=== PATIENT | female | born 1960 | race Hispanic/Latino ===

== ENCOUNTER 2021-04-12 10:15 | Outpatient (CLI) | payer OTHER ==
[2021-04-12 20:45] LABS: SARS-CoV-2 PCR by NAA Not Detected (NotDetected)
== END 2021-04-12 10:16 | disposition home or self-care (01) ==
LOC: CSHLAB 10:15
PROVIDERS: ATTEND Emergency Medicine
DX: Z20.822 Contact with and (suspected) exposure to COVID-19 (principal)
CPT/HCPCS: U0003; U0005

== ENCOUNTER 2021-04-17 13:49 | Outpatient (CLI) | payer OTHER | END 2021-04-17 13:50 | disposition home or self-care (01) | LOC: CSHCP 13:49 | PROVIDERS: ATTEND Emergency Medicine | DX: Z87.09 Personal history of other diseases of the respiratory system (principal) ==

== ENCOUNTER 2023-03-12 07:20 | Day surgery (SDC) | payer OTHER ==
[2023-03-11 10:13] VITALS: BMI 36.1
[2023-03-12] MEDS ORDERED: PROPOFOL 40 ML ONE (09:53)
== END 2023-03-12 11:19 | disposition home or self-care (01) ==
LOC: CSHSDC 07:20
PROVIDERS: ATTEND Internal Medicine Gastroenterology
PROC: 0DBH8ZZ Excision of Cecum, Via Natural or Artificial Opening Endoscopic (ICD-10-PCS; principal; 2023-03-12)
DX: Z12.11 Encounter for screening for malignant neoplasm of colon (principal); D12.0 Benign neoplasm of cecum; K57.30 Diverticulosis of large intestine without perforation or abscess without bleeding; K64.9 Unspecified hemorrhoids; I10 Essential (primary) hypertension; M19.90 Unspecified osteoarthritis, unspecified site; E11.9 Type 2 diabetes mellitus without complications; E78.5 Hyperlipidemia, unspecified; E66.9 Obesity, unspecified; Z79.84 Long term (current) use of oral hypoglycemic drugs; Z79.899 Other long term (current) drug therapy
CPT/HCPCS: 88305; J2704